=== PATIENT | female | born 2000 | race American Indian/Alaskan Native ===

== ENCOUNTER 2019-11-18 14:53 | Observation (INO) | payer OTHER ==
--- NOTE | 2019-11-18 17:45 | Emergency Department Report ---
HPI - General Chief Complaint: Dyspnea/Respdistress Time Seen by Provider: 11/18/19 17:15 - HPI HPI: This is a 19-year-old -[place] female presents to the emergency department, brought in by her mother, with complaint of swelling around the eyes that has been going on for the past week. Also, when the patient presented to triage she was found to have a oxygen saturation of 91% on room air. When asked, the patient does admit to feeling short of breath. She was also found to have elevated blood pressure without a history of hypertension. The patient was just recently on some eyedrops. Her eyes have not been red but they have been draining. Mom says that she has a history of some eye problems and had surgery at the age of 3, but cannot tell me what the condition was or the surgery was. They just moved here from [place] 3 weeks ago. The patient has a history of mental retardation and/or developmental delay. ED Past Medical Hx - Past Medical History Previous Medical History?: Yes Additional medical history: mentally delayed - Surgical History Past Surgical History?: Yes Additional Surgical History: eye surgery when pt was 3 - Social History Smoking Status: Never Smoker Substance Use Type: None - Medications Home Medications: Home Medications Medication Instructions Recorded Confirmed Last Taken Type No Known Home Medications [No 11/18/19 11/18/19 Unknown History Reported Home Medications] ED Review of Systems ROS: Stated complaint: EYE SWOLLEN Other details as noted in HPI Comment: All other systems reviewed and negative Constitutional: denies: chills, fever Eyes: other (Swelling around the eyes). denies: eye pain ENT: denies: ear pain, throat pain Respiratory: shortness of breath. denies: cough Cardiovascular: denies: chest pain, palpitations Gastrointestinal: denies: abdominal pain, vomiting Genitourinary: denies: dysuria, discharge Musculoskeletal: denies: back pain, arthralgia Skin: denies: rash, lesions Neurological: denies: headache, weakness Physical Exam - Physical Exam Vital Signs: Vital Signs 11/18/19 16:00 Temperature 98.4 F Pulse Rate 98 H Respiratory 18 Rate Blood Pressure 182/115 [Right] O2 Sat by Pulse 91 Oximetry Physical Exam: GENERAL: The patient is well-developed well-nourished. HENT: Normocephalic. Atraumatic. Patient has moist mucous membranes. EYES: Extraocular motions are intact. Pupils equal reactive to light bilaterally. There is swelling to the upper eyelids bilaterally. No current drainage. No conjunctival injection. NECK: Supple. Trachea is midline. CHEST/LUNGS: Clear to auscultation. There is no respiratory distress noted. HEART/CARDIOVASCULAR: Regular. There is no tachycardia. There is no murmur. ABDOMEN: Abdomen is soft, nontender. Patient has normal bowel sounds. Obese habitus. SKIN: Skin is warm and dry. Mild pitting edema to the bilateral lower extremities. NEURO: The patient is awake, alert, and cooperative. Normal speech. MUSCULOSKELETAL: There is no tenderness or deformity. There is no limitation range of motion. ED Course Vital Signs 11/18/19 16:00 Temperature 98.4 F Pulse Rate 98 H Respiratory 18 Rate Blood Pressure 182/115 [Right] O2 Sat by Pulse 91 Oximetry - ABG Interpretation Ph: 7.360 PCO2: 58 PO2: 76 Bicarbonate: 32 Interpretation: respiratory acidosis, metabolic alkalosis, other (Mild hypoxemia) ED Medical Decision Making - Lab Data Result diagrams: 11/18/19 17:50 11/18/19 17:50 - EKG Data -: EKG Interpreted by Me EKG shows normal: sinus rhythm, axis, intervals, QRS complexes, ST-T waves Rate: normal - EKG Data When compared to previous EKG there are: previous EKG unavailable Interpretation: normal EKG - Radiology Data Radiology results: image reviewed interpreted by me: Chest x-ray does not show any acute process. There are no pleural effusions, obvious pneumonia and there is no pneumothorax. No significant cardiomegaly. - Medical Decision Making This patient initially presented with complaint of swelling around her eyes. However, upon arrival to triage, the patient was found to have significantly elevated blood pressure and she was 91% oxygen saturation on room air. The patient later did admit to having some intermittent shortness of breath. On examination she also has some mild pitting edema to the bilateral lower extremities. An EKG was performed that did not have any morphology consistent with ST elevation ND or any significant dysrhythmia. Chest x-ray shows cardiomegaly but otherwise does not show any pneumonia, pleural effusions, pneumothorax, focal consolidation, or any other acute process. The labs show some renal insufficiency with a GFR of about 47. She has an elevated BNP level of a little greater than 500. The patient may have some CHF and/or undiagnosed or underlying cardiomyopathy. She was given a dose of Catapres and later a dose of labetalol for her blood pressure and she came down to a much more reasonable level. The patient was placed on supplemental oxygen at 2 L via nasal cannula and she goes back up to 96 to 98%. Multiple times patient was tested without oxygen and she once again drops as low as 89%. An arterial blood gas was performed that shows hypercapnia, mild hypoxemia, and elevated bicarb. Patient will be admitted to the hospital for further evaluation and treatment and was accepted for admission by the hospitalist, Dr. Terrell. Critical Care Time: Yes Critical care time in (mins) excluding proc time.: 31 Critical care attestation.: If time is entered above; I have spent that time in minutes in the direct care of this critically ill patient, excluding procedure time. Critical care time was spent on this patient during her initial evaluation, multiple reevaluations, ordering and interpretation of labs and imaging, treatment of her hypertensive urgency, supplemental oxygen for the hypoxia, multiple discussions with the patient and her mother. Critical Care Time: 31 minutes ED Disposition Clinical Impression: Hypertensive urgency, malignant, Acute kidney injury, Hypercapnia, Hypoxemia CHF (congestive heart failure) Qualifiers: Heart failure type: unspecified Heart failure chronicity: acute Qualified Code(s): I50.9 - Heart failure, unspecified Disposition: 09 OP ADMIT IP TO THIS HOSP Is pt being admited?: Yes Condition: Serious Time of Disposition: 21:37
[2019-11-18] MEDS ORDERED: cloNIDine 0.2 MG TAB PO ONE (18:25)
--- NOTE | 2019-11-18 18:32 | XRay Report ---
CHEST 1 VIEW INDICATION: SOB. COMPARISON: None. FINDINGS: Support devices: None. Heart: Moderate cardiac enlargement. Lungs/Pleura: No acute air space or interstitial disease. Diminished lung volumes. Additional findings: None. IMPRESSION: 1. Cardiomegaly. 2. Diminished lung volumes. Signer Name: Gui Rogers MD Signed: 11/18/2019 6:27 PM Workstation Name: [id number] Data [id number]
[2019-11-18 18:44] LABS: Mean Corpuscular HGB Conc 30 % (30-34); Mean Corpuscular Volume 72 fl (79-97); Platelet Count 210 K/mm3 (140-440); Red Blood Count 6.89 M/mm3 (3.65-5.03); Red Cell Distribution Width 16.9 % (13.2-15.2)
[2019-11-18 18:51] LABS: Hematocrit 49.6 % (30.3-42.9); Hemoglobin 14.7 gm/dl (10.1-14.3)
[2019-11-18 18:54] LABS: INR 1.01 (0.87-1.13)
[2019-11-18 19:16] LABS: Albumin 3.2 g/dL (3.9-5); Calcium 9.3 mg/dL (8.4-10.2)
[2019-11-18 20:00] LABS: Band Neutrophils # (Manual) 0.1 K/mm3; Total Cells Counted 100
[2019-11-18 20:01] LABS: Hypochromasia 2+
[2019-11-18 20:06] LABS: Large Platelets Rare; Platelet Estimate Consistent w Auto
[2019-11-18 21:08] LABS: ABG Base Excess 4.8 mmol/L (-2.0-3.0); ABG Methemoglobin 0.6 % (0.0-1.5); ABG Oxygen Saturation 95.3 % (95.0-99.0); ABG PH 7.36 pH Units (7.350-7.450); ABG PO2 76.5 mm Hg (80.0-90.0)
[2019-11-18] MEDS ORDERED: ACETAMINOPHEN 325 MG TAB PO PRN (21:46)
[2019-11-18] MEDS ORDERED: ONDANSETRON 4 MG/2 ML INJ IV PRN (21:46)
[2019-11-18] MEDS ORDERED: MAGNESIUM HYDROXIDE (MOM) ORAL LIQD UDC PO PRN (21:46)
[2019-11-18] MEDS ORDERED: MORPHINE 2 MG/1 ML INJ IV PRN (21:46)
--- NOTE | 2019-11-18 21:57 | History and Physical Report ---
History of Present Illness Date of examination: 11/18/19 Date of admission: 11/18/2019 Chief complaint: Shortness of breath Swelling around eyes History of present illness: 19-year-old -[place] female with known history of autism/mentally challenged seen in the emergency room today accompanied by her mother complaining of swelling around the eyes for the past 1 week. She has also complained of shortness of breath and has also been having difficulty lying down flat at night. She has denied any fever or chills, no nausea or vomiting, no cough, no headache or dizziness. Upon arrival in the emergency room she was found to be slightly hypoxic with O2 saturation of about 91% on room air, quite hypertensive. Mother indicates that they just moved to [place] from [place] about 3 weeks ago. No history of any sick contacts, no history of any contact with anyone with COVID-19. Work-up in the emergency room reveals elevated BNP, chest x-ray was significant for cardiomegaly and patient had a slightly elevated creatinine on the chemistry. Patient is being admitted for possible new onset cardiomyopathy. Past History Past Medical History: other (Mentally Challenged/Autism) Past Surgical History: No surgical history Social history: lives with family Family history: no significant family history Medications and Allergies Allergies Allergy/AdvReac Type Severity Reaction Status Date / Time No Known Allergies Allergy Verified 11/18/19 21:54 Home Medications Medication Instructions Recorded Confirmed Last Taken Type No Known Home Medications [No 11/18/19 11/18/19 Unknown History Reported Home Medications] Review of Systems Constitutional: no fever, no chills Ears, nose, mouth and throat: no nasal congestion, no sore throat Cardiovascular: orthopnea, leg edema, no chest pain, no palpitations Respiratory: shortness of breath, no cough Gastrointestinal: no abdominal pain, no nausea, no vomiting, no diarrhea Genitourinary Female: no flank pain, no dysuria, no hematuria Musculoskeletal: no neck pain, no low back pain Integumentary: no rash, no pruritis Neurological: no headaches, no confusion Psychiatric: no anxiety, no depression Exam - Constitutional Vitals: Temp Pulse Resp BP Pulse Ox 98.4 F 86 31 H 115/61 97 11/18/19 16:00 11/18/19 21:31 11/18/19 21:31 11/18/19 21:31 11/18/19 21:31 General appearance: Present: no acute distress, well-nourished, other (Right eyelid swelling) - EENT Eyes: Present: PERRL, EOM intact. Absent: scleral icterus ENT: hearing intact, clear oral mucosa, dentition normal - Neck Neck: Present: supple, normal ROM - Respiratory Respiratory effort: normal Respiratory: bilateral: CTA - Cardiovascular Rhythm: regular Heart Sounds: Present: S1 & S2. Absent: gallop, systolic murmur, diastolic murmur, rub - Extremities Extremities: no ischemia, pulses intact, pulses symmetrical, Full ROM Extremity abnormal: edema (Trace bilateral lower extremity edema) - Abdominal General gastrointestinal: Present: soft, non-tender, non-distended, normal bowel sounds. Absent: mass - Integumentary Integumentary: Present: clear, warm, dry. Absent: rash - Musculoskeletal Musculoskeletal: strength equal bilaterally - Psychiatric Psychiatric: appropriate mood/affect, intact judgment & insight, memory intact, cooperative - Neurologic Neurologic: CNII-XII intact, no focal deficits, moves all extremities HEART Score - HEART Score Troponin: Troponin T 0.024 ng/mL (0.00-0.029) 11/18/19 17:50 Results - Labs CBC & Chem 7: 11/19/19 04:26 11/18/19 17:50 Labs: Abnormal lab results 11/18/19 11/18/19 11/18/19 Range/Units 17:50 17:50 17:50 RBC 6.89 H (3.65-5.03) M/mm3 Hgb 14.7 H (10.1-14.3) gm/dl Hct 49.6 H (30.3-42.9) % MCV 72 L (79-97) fl MCH 21 L (28-32) pg RDW 16.9 H (13.2-15.2) % Monocytes % (Manual) 9.0 H (0.0-7.3) % Basophils % (Manual) 2.0 H (0.0-1.8) % ABG pO2 (80.0-90.0) mm Hg ABG HCO3 (20.0-26.0) mmol/L ABG Base Excess (-2.0-3.0) mmol/L Oxyhemoglobin (95.0-99.0) % Creatinine 1.4 H (0.6-1.2) mg/dL Alkaline Phosphatase 140 H (35-129) units/L NT-Pro-B Natriuret Pep 510.1 H (0-450) pg/mL Albumin 3.2 L (3.9-5) g/dL 11/18/19 Range/Units 21:00 RBC (3.65-5.03) M/mm3 Hgb (10.1-14.3) gm/dl Hct (30.3-42.9) % MCV (79-97) fl MCH (28-32) pg RDW (13.2-15.2) % Monocytes % (Manual) (0.0-7.3) % Basophils % (Manual) (0.0-1.8) % ABG pO2 76.5 L (80.0-90.0) mm Hg ABG HCO3 32.0 H (20.0-26.0) mmol/L ABG Base Excess 4.8 H (-2.0-3.0) mmol/L Oxyhemoglobin 93.1 L (95.0-99.0) % Creatinine (0.6-1.2) mg/dL Alkaline Phosphatase (35-129) units/L NT-Pro-B Natriuret Pep (0-450) pg/mL Albumin (3.9-5) g/dL Assessment and Plan - Patient Problems (1) CHF (congestive heart failure) Current Visit: Yes Status: Acute Qualifiers: Heart failure type: unspecified Heart failure chronicity: acute Qualified Code(s): I50.9 - Heart failure, unspecified Plan to address problem: Patient admitted and placed on diuretics. Will monitor inputs and outputs and also monitor daily weights. Meanwhile we will schedule patient for echocardiogram and also request cardiology evaluation. (2) Hypertensive urgency, malignant Current Visit: Yes Status: Acute Plan to address problem: Patient has no known history of hypertension. She had clonidine and labetalol in the ER Will monitor vital signs closely and commence antihypertensive as needed. (3) Hypoxemia Current Visit: Yes Status: Acute Plan to address problem: Possibly secondary to to the CHF. We will keep oxygen saturation greater or equal to 92%. (4) Acute kidney injury Current Visit: Yes Status: Acute Plan to address problem: Will monitor BUN and creatinine. We will request nephrology evaluation if needed. (5) DVT prophylaxis Current Visit: Yes Status: Acute Plan to address problem: Patient placed on subcutaneous Lovenox. (6) Full code status Current Visit: Yes Status: Acute
[2019-11-19 05:03] LABS: Basophils # (Auto) 0.1 K/mm3 (0.0-0.1); Basophils % (Auto) 1.3 % (0.0-1.8); Eosinophils # (Auto) 0.2 K/mm3 (0.0-0.4); Eosinophils % (Auto) 2.6 % (0.0-4.3); Lymphocytes # (Auto) 1.3 K/mm3 (1.2-5.4); Lymphocytes % (Auto) 19.7 % (13.4-35.0); Mean Corpuscular HGB Conc 30 % (30-34); Mean Corpuscular Volume 72 fl (79-97); Monocytes # (Auto) 0.6 K/mm3 (0.0-0.8); Monocytes % (Auto) 9.7 % (0.0-7.3); Platelet Count 214 K/mm3 (140-440); Red Cell Distribution Width 16.5 % (13.2-15.2)
[2019-11-19 05:11] LABS: INR 1.06 (0.87-1.13)
[2019-11-19 05:14] LABS: Hematocrit 44.4 % (30.3-42.9); Hemoglobin 13.4 gm/dl (10.1-14.3)
[2019-11-19] MEDS: FUROSEMIDE 20 MG/2 ML INJ IV SCH ×2 (05:31→19:11)
--- NOTE | 2019-11-19 09:30 | Consultation ---
History of Present Illness Consult date: 11/19/19 Consult reason: congestive heart failure History of present illness: This is a developmental delayed 19 year old F who was brought to this hospital with periorbital edema. Patient is accompanied with her mother. On presentation to the ED, patient was noted with an elevated BP, 222/139. The patient has not seen a physician in over a year but family member denies a prior history of hypertension. There were no complaints of headaches, dizziness or vision changes. There were no complaints of shortness of breath and she has no lower extremity edema. Chest x-ray shows cardiomegaly but no evidence of interstitial edema. An ECG done is normal sinus rhythm. A cardiac consultation has been requested for evaluation of CHF. Past History Past Medical History: other (Mentally Challenged/Autism) Past Surgical History: No surgical history Social history: lives with family Family history: no significant family history Medications and Allergies Allergies Allergy/AdvReac Type Severity Reaction Status Date / Time No Known Allergies Allergy Verified 11/18/19 21:54 Home Medications Medication Instructions Recorded Confirmed Last Taken Type No Known Home Medications [No 11/18/19 11/18/19 Unknown History Reported Home Medications] Active Meds: Active Medications Acetaminophen (Tylenol) 650 mg PO Q4H PRN PRN Reason: Pain MILD(1-3)/Fever >100.5/NICHOLSON Enoxaparin Sodium (Enoxaparin) 30 mg SUB-Q QDAY@1000 GREGOR; Protocol Furosemide (Lasix) 20 mg IV BID@0600,1800 GREGOR Last Admin: 11/19/19 05:31 Dose: 20 mg Documented by: Magnesium Hydroxide (Milk Of Magnesia) 30 ml PO Q4H PRN PRN Reason: Constipation Morphine Sulfate (Morphine) 2 mg IV Q4H PRN PRN Reason: Pain, Moderate (4-6) Ondansetron HCl (Zofran) 4 mg IV Q8H PRN PRN Reason: Nausea And Vomiting Sodium Chloride (Sodium Chloride Flush Syringe 10 Ml) 10 ml IV BID [facility] [place] Last Admin: 11/18/19 21:57 Dose: 10 ml Documented by: Sodium Chloride (Sodium Chloride Flush Syringe 10 Ml) 10 ml IV PRN PRN PRN Reason: LINE FLUSH Physical Examination Vital Signs Temp Pulse Resp BP Pulse Ox 98.4 F 98 H 18 182/115 91 11/18/19 16:00 11/18/19 16:00 11/18/19 16:00 11/18/19 16:00 11/18/19 16:00 General appearance: no acute distress HEENT: Positive: PERRL Neck: Positive: trachea midline Cardiac: Positive: Reg Rate and Rhythm Lungs: Positive: Normal Breath Sounds Neuro: Positive: Grossly Intact Extremities: Absent: edema Results 11/19/19 04:26 11/19/19 04:26 Cardiac Enzymes 11/18/19 Range/Units 17:50 AST 20 (5-40) units/L Coagulation 11/18/19 11/19/19 Range/Units 17:50 04:26 PT 13.4 13.9 (12.2-14.9) Sec. INR 1.01 1.06 (0.87-1.13) CBC 11/18/19 11/19/19 Range/Units 17:50 04:26 WBC 7.4 6.5 (4.5-11.0) K/mm3 RBC 6.89 H 6.20 H (3.65-5.03) M/mm3 Hgb 14.7 H 13.4 (10.1-14.3) gm/dl Hct 49.6 H 44.4 H (30.3-42.9) % Plt Count 210 214 (140-440) K/mm3 Lymph # (Auto) 1.3 (1.2-5.4) K/mm3 Lea # (Auto) 0.6 (0.0-0.8) K/mm3 Eos # (Auto) 0.2 (0.0-0.4) K/mm3 Baso # (Auto) 0.1 (0.0-0.1) K/mm3 Comprehensive Metabolic Panel 11/18/19 11/19/19 Range/Units 17:50 04:26 Sodium 140 146 H (137-145) mmol/L Potassium 4.2 4.4 (3.6-5.0) mmol/L Chloride 100.1 102.5 (98-107) mmol/L Carbon Dioxide 29 28 (22-30) mmol/L BUN 13 15 (7-17) mg/dL Creatinine 1.4 H 1.4 H (0.6-1.2) mg/dL Glucose 84 107 H (65-100) mg/dL Calcium 9.3 9.0 (8.4-10.2) mg/dL AST 20 (5-40) units/L ALT 20 (7-56) units/L Alkaline Phosphatase 140 H (35-129) units/L Total Protein 6.7 (6.3-8.2) g/dL Albumin 3.2 L (3.9-5) g/dL Assessment and Plan Periorbital edema Hypertension Recommendations: Optimal BP management. Will obtain an echocardiogram for LVEF assessment.
[2019-11-19] MEDS ORDERED: ENOXAPARIN 40 MG/0.4 ML INJ SUB-Q SCH (10:00)
[2019-11-19] MEDS ORDERED: ENOXAPARIN 30 MG/0.3 ML INJ SUB-Q SCH ×2 (10:00)
--- NOTE | 2019-11-19 18:10 | Progress Note ---
Assessment and Plan Assessment and plan: 19-year-old -[place] female with known history of autism/mentally challenged seen in the emergency room today accompanied by her mother complaining of swelling around the eyes for the past 1 week. She has also complained of shortness of breath and has also been having difficulty lying down flat at night. She has denied any fever or chills, no nausea or vomiting, no cough, no headache or dizziness. Upon arrival in the emergency room she was found to be slightly hypoxic with O2 saturation of about 91% on room air, quite hypertensive. Mother indicates that they just moved to [place] from [place] about 3 weeks ago. No history of any sick contacts, no history of any contact with anyone with C OVID-19. Work-up in the emergency room reveals elevated BNP, chest x-ray was significant for cardiomegaly and patient had a slightly elevated creatinine on the chemistry. Patient is being admitted for possible new onset cardiomyopathy. 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 6-minute walk showed a oxygen saturation of 97% on room air DVT and GI prophylaxis Weight loss counseling also provided Outpatient sleep apnea study recommended. History Interval history: Patient seen and examined case discussed with the mother in detail who states that the patient takes deep breaths which is different from her normal shallow breathing. She denies any history of obstructive sleep apnea or any notable pauses during sleep. Hospitalist Physical - Physical exam Narrative exam: VITAL SIGNS: Reviewed. GENERAL: The patient appears normally developed, morbidly obese vital signs as documented. HEAD: No signs of head trauma. EYES: Pupils are equal. Extraocular motions intact. EARS: Hearing grossly intact. MOUTH: Oropharynx is normal. NECK: No adenopathy, no JVD. CHEST: Chest with clear breath sounds bilaterally. No wheezes, rales, or rhonchi. CARDIAC: Regular rate and rhythm. S1 and S2, without murmurs, gallops, or rubs. VASCULAR: No Edema. Peripheral pulses normal and equal in all extremities. ABDOMEN: Soft, non tender and non distended. No rebound or guarding, and no masses palpated. Bowel Sounds normal. MUSCULOSKELETAL: Good range of motion of all major joints. Extremities without clubbing, cyanosis or edema. NEUROLOGIC EXAM: Alert and oriented x 3 except delayed mental development evident no focal sensory or strength deficits. Speech normal. Follows commands. PSYCHIATRIC: Mood normal. SKIN: detail exam as documented in skin assessment - Constitutional Vitals: Temp Pulse Resp BP Pulse Ox 97.8 F 75 18 144/82 96 11/19/19 04:00 11/19/19 14:00 11/19/19 04:00 11/19/19 04:00 11/19/19 10:01 General appearance: Present: no acute distress HEART Score - HEART Score Troponin: Troponin T 0.024 ng/mL (0.00-0.029) 11/18/19 17:50 Results - Labs CBC & Chem 7: 11/19/19 04:26 11/19/19 04:26 Labs: Laboratory Last Values WBC 6.5 K/mm3 (4.5-11.0) 11/19/19 04:26 RBC 6.20 M/mm3 (3.65-5.03) H 11/19/19 04:26 Hgb 13.4 gm/dl (10.1-14.3) 11/19/19 04:26 Hct 44.4 % (30.3-42.9) H 11/19/19 04:26 MCV 72 fl (79-97) L 11/19/19 04:26 MCH 22 pg (28-32) L 11/19/19 04:26 MCHC 30 % (30-34) 11/19/19 04:26 RDW 16.5 % (13.2-15.2) H 11/19/19 04:26 Plt Count 214 K/mm3 (140-440) 11/19/19 04:26 Lymph % (Auto) 19.7 % (13.4-35.0) 11/19/19 04:26 Dodge % (Auto) 9.7 % (0.0-7.3) H 11/19/19 04:26 Eos % (Auto) 2.6 % (0.0-4.3) 11/19/19 04:26 Baso % (Auto) 1.3 % (0.0-1.8) 11/19/19 04:26 Lymph # (Auto) 1.3 K/mm3 (1.2-5.4) 11/19/19 04:26 Dodge # (Auto) 0.6 K/mm3 (0.0-0.8) 11/19/19 04:26 Eos # (Auto) 0.2 K/mm3 (0.0-0.4) 11/19/19 04: Baso # (Auto) 0.1 K/mm3 (0.0-0.1) 11/19/19 04:26 Add Manual Diff Complete 11/18/19 17:50 Total Counted 100 11/18/19 17:50 Seg Neutrophils % 66.7 % (40.0-70.0) 11/19/19 04:26 Seg Neuts % (Manual) 70.0 % (40.0-70.0) 11/18/19 17:50 Band Neutrophils % 1.0 % 11/18/19 17:50 Lymphocytes % (Manual) 16.0 % (13.4-35.0) 11/18/19 17:50 Reactive Lymphs % (Man) 0 % 11/18/19 17:50 Monocytes % (Manual) 9.0 % (0.0-7.3) H 11/18/19 17:50 Eosinophils % (Manual) 2.0 % (0.0-4.3) 11/18/19 17:50 Basophils % (Manual) 2.0 % (0.0-1.8) H 11/18/19 17:50 Metamyelocytes % 0 % 11/18/19 17:50 Myelocytes % 0 % 11/18/19 17:50 Promyelocytes % 0 % 11/18/19 17:50 Blast Cells % 0 % 11/18/19 17:50 Nucleated RBC % Not Reportable 11/18/19 17:50 Seg Neutrophils # 4.4 K/mm3 (1.8-7.7) 11/19/19 04:26 Seg Neutrophils # Man 5.2 K/mm3 (1.8-7.7) 11/18/19 17:50 Band Neutrophils # 0.1 K/mm3 11/18/19 17:50 Lymphocytes # (Manual) 1.2 K/mm3 (1.2-5.4) 11/18/19 17:50 Abs React Lymphs (Man) 0.0 K/mm3 11/18/19 17:50 Monocytes # (Manual) 0.7 K/mm3 (0.0-0.8) 11/18/19 17:50 Eosinophils # (Manual) 0.1 K/mm3 (0.0-0.4) 11/18/19 17:50 Basophils # (Manual) 0.1 K/mm3 (0.0-0.1) 11/18/19 17:50 Metamyelocytes # 0.0 K/mm3 11/18/19 17:50 Myelocytes # 0.0 K/mm3 11/18/19 17:50 Promyelocytes # 0.0 K/mm3 11/18/19 17:50 Blast Cells # 0.0 K/mm3 11/18/19 17:50 WBC Morphology Not Reportable 11/18/19 17:50 Hypersegmented Neuts Not Reportable 11/18/19 17:50 Hyposegmented Neuts Not Reportable 11/18/19 17:50 Hypogranular Neuts Not Reportable 11/18/19 17:50 Smudge Cells Not Reportable 11/18/19 17:50 Toxic Granulation Not Reportable 11/18/19 17:50 Toxic Vacuolation Not Reportable 11/18/19 17:50 Dohle Bodies Not Reportable 11/18/19 17:50 Pelger-Huet Anomaly Not Reportable 11/18/19 17:50 Matrin Rods Not Reportable 11/18/19 17:50 Platelet Estimate Consistent w auto 11/18/19 17:50 Clumped Platelets Not Reportable 11/18/19 17:50 Plt Clumps, EDTA Not Reportable 11/18/19 17:50 Large Platelets Rare 11/18/19 17:50 Giant Platelets Not Reportable 11/18/19 17:50 Platelet Satelliting Not Reportable 11/18/19 17:50 Plt Morphology Comment Not Reportable 11/18/19 17:50 RBC Morphology Not Reportable 11/18/19 17:50 Dimorphic RBCs Not Reportable 11/18/19 17:50 Polychromasia Not Reportable 11/18/19 17:50 Hypochromasia 2+ 11/18/19 17:50 Poikilocytosis Not Reportable 11/18/19 17:50 Anisocytosis Not Reportable 11/18/19 17:50 Microcytosis Not Reportable 11/18/19 17:50 Macrocytosis Not Reportable 11/18/19 17:50 Spherocytes Not Reportable 11/18/19 17:50 Pappenheimer Bodies Not Reportable 11/18/19 17:50 Sickle Cells Not Reportable 11/18/19 17:50 Target Cells Not Reportable 11/18/19 17:50 Tear Drop Cells Not Reportable 11/18/19 17:50 Ovalocytes Not Reportable 11/18/19 17:50 Helmet Cells Not Reportable 11/18/19 17:50 Jane-Stiles Bodies Not Reportable 11/18/19 17:50 [place] Rings Not Reportable 11/18/19 17:50 [place] Cells Not Reportable 11/18/19 17:50 Bite Cells Not Reportable 11/18/19 17:50 Crenated Cell Not Reportable 11/18/19 17:50 Elliptocytes Not Reportable 11/18/19 17:50 Acanthocytes (Spur) Not Reportable 11/18/19 17:50 Rouleaux Not Reportable 11/18/19 17:50 Hemoglobin C Crystals Not Reportable 11/18/19 17:50 Schistocytes Not Reportable 11/18/19 17:50 Malaria parasites Not Reportable 11/18/19 17:50 El Bodies Not Reportable 11/18/19 17:50 Hem Pathologist Commnt No 11/18/19 17:50 PT 13.9 Sec. (12.2-14.9) 11/19/19 04:26 INR 1.06 (0.87-1.13) 11/19/19 04:26 D-Dimer 201.2 ng/mlDDU (0-234) 11/18/19 17:50 ABG pH 7.360 pH Units (7.350-7.450) 11/18/19 21:00 ABG pCO2 58.0 mm Hg 11/18/19 21:00 ABG pO2 76.5 mm Hg (80.0-90.0) L 11/18/19 21:00 ABG HCO3 32.0 mmol/L (20.0-26.0) H 11/18/19 21:00 ABG O2 Saturation 95.3 % (95.0-99.0) 11/18/19 21:00 ABG O2 Content 18.8 (0.0-44) 11/18/19 21:00 ABG Base Excess 4.8 mmol/L (-2.0-3.0) H 11/18/19 21:00 ABG Hemoglobin 14.3 gm/dl (12.0-16.0) 11/18/19 21:00 ABG Carboxyhemoglobin 1.8 % (0.0-5.0) 11/18/19 21:00 ABG Methemoglobin 0.6 % (0.0-1.5) 11/18/19 21:00 Oxyhemoglobin 93.1 % (95.0-99.0) L 11/18/19 21:00 FiO2 21 % 11/18/19 21:00 Sodium 146 mmol/L (137-145) H 11/19/19 04:26 Potassium 4.4 mmol/L (3.6-5.0) 11/19/19 04:26 Chloride 102.5 mmol/L (98-107) 11/19/19 04:26 Carbon Dioxide 28 mmol/L (22-30) 11/19/19 04:26 Anion Gap 20 mmol/L 11/19/19 04:26 BUN 15 mg/dL (7-17) 11/19/19 04:26 Creatinine 1.4 mg/dL (0.6-1.2) H 11/19/19 04:26 Estimated GFR 57 ml/min 11/19/19 04:26 BUN/Creatinine Ratio 11 % 11/19/19 04:26 Glucose 107 mg/dL (65-100) H 11/19/19 04:26 Calcium 9.0 mg/dL (8.4-10.2) 11/19/19 04:26 Total Bilirubin 0.20 mg/dL (0.1-1.2) 11/18/19 17:50 AST 20 units/L (5-40) 11/18/19 17:50 ALT 20 units/L (7-56) 11/18/19 17:50 Alkaline Phosphatase 140 units/L (35-129) H 11/18/19 17:50 Troponin T 0.024 ng/mL (0.00-0.029) 11/18/19 17:50 NT-Pro-B Natriuret Pep 510.1 pg/mL (0-450) H 11/18/19 17:50 Total Protein 6.7 g/dL (6.3-8.2) 11/18/19 17:50 Albumin 3.2 g/dL (3.9-5) L 11/18/19 17:50 Albumin/Globulin Ratio 0.9 % 11/18/19 17:50 TSH 2.920 mlU/mL (0.270-4.200) 11/18/19 17:50 Dozier/IV: Voiding Method Toilet IV Catheter Type [Left Peripheral IV Antecubital] Active Medications - Current Medications Current Medications: Generic Name Dose Route Start Last Admin Trade Name Freq PRN Reason Stop Dose Admin Acetaminophen 650 mg 11/18/19 21:46 Tylenol PO Q4H PRN Pain MILD(1-3)/Fever >100.5/NICHOLSON Enoxaparin Sodium 40 mg 11/20/19 10:00 Enoxaparin SUB-Q QDAY@1000 GREGOR Furosemide 20 mg 11/19/19 06:00 11/19/19 05:31 Lasix IV 20 mg BID@0600,1800 GREGOR Administration Magnesium Hydroxide 30 ml 11/18/19 21:46 Milk Of Magnesia PO Q4H PRN Constipation Morphine Sulfate 2 mg 11/18/19 21:46 Morphine IV Q4H PRN Pain, Moderate (4-6) Ondansetron HCl 4 mg 11/18/19 21:46 Zofran IV Q8H PRN Nausea And Vomiting Sodium Chloride 10 ml 11/18/19 22:00 11/19/19 10:00 Sodium Chloride Flush Syringe 10 Ml IV 10 ml BID GREGOR Administration Sodium Chloride 10 ml 11/18/19 21:46 Sodium Chloride Flush Syringe 10 Ml IV PRN PRN LINE FLUSH
[2019-11-19 21:51] LABS: Bilirubin,Urine NEG (Negative); Blood,Urine MOD (Negative); Color,Urine Straw (Yellow); Urobilinogen,Urine < 2.0 mg/dL (<2.0)
[2019-11-20] MEDS: FUROSEMIDE 20 MG/2 ML INJ IV SCH ×2 (05:38→17:46)
--- NOTE | 2019-11-20 07:52 | Progress Note ---
Assessment and Plan Periorbital edema Hypertension Recommendations: Optimal BP management. Will obtain an echocardiogram for LVEF assessment. Subjective Date of service: 11/20/19 Interval history: Patient is resting in bed an appears comfortable. She denies shortness of breath. Her mother is at the bedside. Objective Vital Signs Temp Pulse Resp BP Pulse Ox 11/20/19 05:26 106 H 11/20/19 04:13 98.0 F 106 H 18 158/96 93 11/19/19 23:41 98.0 F 79 18 93 11/19/19 23:40 98.0 F 93 H 18 138/100 94 11/19/19 22:00 95 H 92 11/19/19 19:26 98.4 F 91 H 18 147/93 92 11/19/19 14:00 75 11/19/19 11:54 97.8 F 70 18 140/88 98 11/19/19 11:00 96 11/19/19 10:01 96 11/19/19 08:06 98.3 F 83 18 144/93 100 - Physical Examination General: No Apparent Distress HEENT: Positive: PERRL Neck: Positive: trachea midline Cardiac: Positive: Reg Rate and Rhythm Lungs: Positive: Normal Breath Sounds Neuro: Positive: Grossly Intact Extremities: Absent: edema
[2019-11-20] MEDS ORDERED: VALSARTAN 160MG TAB PO SCH (10:00)
[2019-11-20] MEDS ORDERED: ENOXAPARIN 40 MG/0.4 ML INJ SUB-Q SCH (10:00)
[2019-11-20] MEDS ORDERED: METOPROLOL SUCCINATE XL 50 MG TAB PO SCH (13:00)
--- NOTE | 2019-11-20 17:38 | Discharge Summary ---
Providers - Providers Date of Admission: 11/18/19 21:37 Date of discharge: 11/20/19 Attending physician: LILLIAM QUARLES 11/18/19 21:46 Consult to Physician [CONS] Routine Comment: Consulting Provider: LINSEY LEMONS Physician Instructions: Reason For Exam: DYSPNEA. R/O CHF- [place] Primary care physician: MOLD BREAKER Hospitalization Condition: Serious Hospital course: Patient's echocardiogram shows left ventricular systolic function minimally impaired with ejection fraction 45 to 50%. Serial ECGs were normal sinus rhythm, normal ECG. The blood pressure remains elevated, patient is currently not on medications. Recommendations: We will start medical therapy with Bystolic 5 mg daily for hypertension. Otherwise conservative cardiac approach to management. Periorbital or nondependent edema is not a usual presentation for volume overload due to cardiac dysfunction. Disposition: TO HOME OR SELFCARE Exam - Constitutional Vitals: Temp Pulse Resp BP Pulse Ox 98.1 F 89 20 137/100 96 11/20/19 07:53 11/20/19 10:25 11/20/19 07:53 11/20/19 10:25 11/20/19 08:24 Plan Follow up with: PRIMARY MD MARI [Primary Care Provider] - 3-5 Days
[2019-11-20 17:41] VITALS: BP 116/75
== END 2019-11-20 18:29 | disposition home or self-care (01) ==
LOC: ED 14:53 → 4A 21:37
PROVIDERS: ADMIT Internal Medicine Geriatric Medicine; ATTEND Internal Medicine
DX: I16.0 Hypertensive urgency (principal); I11.0 Hypertensive heart disease with heart failure; I50.9 Heart failure, unspecified; N17.9 Acute kidney failure, unspecified; R09.02 Hypoxemia; R06.89 Other abnormalities of breathing; F84.0 Autistic disorder; H05.229 Edema of unspecified orbit; Z98.890 Other specified postprocedural states
CPT/HCPCS: 36415; 71045; 80048; 80053; 81001; 82803; 83880; 84443; 84484; 85025; 85379; 85610; 93005; 93306; 96372; 96374; 96375; 96376; 99291; G0378; J1650; J1940; 85007